=== PATIENT | male | born 2000 | race Caucasian/White ===

== ENCOUNTER 2019-10-07 21:32 | Emergency (ER) | payer MEDICAID ==
[2019-10-07 22:35] VITALS: BP 120/55
[2019-10-07] MEDS ORDERED: IBUPROFEN 800 MG TABLET PO ONE (22:39)
--- NOTE | 2019-10-07 22:46 | ER Document Report ---
ED Burn/Smoke/Toxic Fumes - General Chief Complaint: Sunburn Stated Complaint: SUNBURN/BLISTERING Time Seen by Provider: 10/07/19 22:39 Primary Care Provider: MIHIR SHARMA MD [Primary Care Provider] - Follow up as needed Mode of Arrival: Ambulatory Information source: Patient Notes: 18-year-old male presented to ED for complaint of sunburn to his arms and shoulders. He states he went fishing and did not put on any sunscreen. He states he had a sleeveless shirt on. He states he was well angry when he wants patient because it took so long to get everything ready and then he did not put on sunscreen. 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 He states he is having pain in both shoulders since he came home. TRAVEL OUTSIDE OF THE [place] IN LAST 30 DAYS: No - HPI Patient complains to provider of: Other - Sunburn second degree Onset: Other - States he was out in the sun most of the day patient Where: Outdoors Quality of pain: Burning Severity: Moderate Pain Level: 2 Context: Other - Sunburn Associated Symptoms: None Other injuries: None - Related Data Allergies/Adverse Reactions: No Known Allergies Allergy (Verified 03/29/17 19:00) Past Medical History - General Information source: Patient - Social History Smoking Status: Current Some Day Smoker Cigarette use (# per day): Yes Smoking Education Provided: Yes - 4 minutes Frequency of alcohol use: None Drug Abuse: None Lives with: Family Family History: Reviewed & Not Pertinent Patient has homicidal ideation: No - Past Medical History Cardiac Medical History: Reports: None Pulmonary Medical History: Reports: None EENT Medical History: Reports: None Neurological Medical History: Reports: None Endocrine Medical History: Reports: None Renal/ Medical History: Reports: None Malignancy Medical History: Reports None GI Medical History: Reports: None Musculoskeletal Medical History: Reports None Skin Medical History: Reports None Psychiatric Medical History: Reports: None Traumatic Medical History: Reports: None Infectious Medical History: Reports: None Past Surgical History: Reports: Other - Mole removed from head - Immunizations Immunizations up to date: Yes Hx Diphtheria, Pertussis, Tetanus Vaccination: Yes Review of Systems - Review of Systems Constitutional: No symptoms reported EENT: No symptoms reported Cardiovascular: No symptoms reported Respiratory: No symptoms reported Gastrointestinal: No symptoms reported Genitourinary: No symptoms reported Male Genitourinary: No symptoms reported Musculoskeletal: No symptoms reported Skin: Other - Sunburn both arms and shoulders, second-degree shoulders first- degree arms Hematologic/Lymphatic: No symptoms reported Neurological/Psychological: No symptoms reported -: Yes All other systems reviewed and negative Physical Exam - Vital signs Vitals: Temp 98.7 F 10/07/19 21:32 Interpretation: Normal - General General appearance: Appears well, Alert - HEENT Head: Normocephalic, Atraumatic Eyes: Normal Pupils: PERRL - Respiratory Respiratory status: No respiratory distress Chest status: Nontender Breath sounds: Normal Chest palpation: Normal - Cardiovascular Rhythm: Regular Heart sounds: Normal auscultation Murmur: No - Abdominal Inspection: Normal Distension: No distension Bowel sounds: Normal Tenderness: Nontender Organomegaly: No organomegaly - Back Back: Normal, Nontender - Extremities General upper extremity: Normal ROM, Normal temperature General lower extremity: Normal inspection, Nontender, Normal color, Normal ROM, Normal temperature, Normal weight bearing. No: Ynes's sign Shoulder: Tender, Other - Second-degree sunburn with blisters to both shoulders Arm: Tender - First-degree sunburn to both arms Forearm: Tender - First-degree sunburn to both arms - Neurological Neuro grossly intact: Yes Cognition: Normal Orientation: AAOx4 Rukhsana Coma Scale Eye Opening: Spontaneous Solomon Coma Scale Verbal: Oriented Rukhsana Coma Scale Motor: Obeys Commands Solomon Coma Scale Total: 15 Speech: Normal Motor strength normal: LUE, RUE, LLE, RLE Sensory: Normal - Psychological Associated symptoms: Normal affect, Normal mood - Skin Skin Temperature: Warm Skin Moisture: Dry Skin Color: Normal Course - Re-evaluation Re-evalutation: 10/08/19 00:08 Patient was treated with ibuprofen in the emergency room and bacitracin to both arms. He was given instructions to use aloe after sun to his shoulders and arms or bacitracin. He was instructed to use ibuprofen for his discomfort. Patient verbalized understanding and agreement with treatment plan patient was discharged home to follow-up with his primary care doctor. - Vital Signs Vital signs: Temp Pulse Resp BP Pulse Ox 98.1 F 76 15 120/55 L 98 10/07/19 22:34 10/07/19 22:34 10/07/19 22:34 10/07/19 22:34 10/07/19 22:34 Discharge - Discharge Clinical Impression: Second degree sunburn Condition: Stable Disposition: HOME, SELF-CARE Additional Instructions: Sunburn Sunburn is caused by prolonged exposure to ultraviolet light. This can be natural sunlight or a tanning bed. Your symptoms may include redness or blistering of the skin, fatigue, weakness, and chills that last two or three days. Treatment includes antiinflammatory pain medication, rest, cooling baths, and moisturizing skin cream. Occasionally, cortisone-type medicine is required for severe sunburns. Antihistamines may be helpful if itching is severe as you heal. You should avoid any exposure to ultraviolet light for the next week or two so that further skin damage can be avoided. In the future, you should use sunscreens. Frequent or prolonged ultraviolet light exposure can cause premature skin aging, skin cancers, and wrinkles. Call the doctor if you are not improving in two or three days. Report any drainage, increasing swelling, fever, chills, or other signs of infection. Antibiotic Ointment Protection Your wounds are such that dressing them is not practical or optional. After cleansing, you should apply a thin coating of antibiotic ointment (Bacitracin, not Neosporin) to the wounds at least three times daily. This lessens infection risk, and may decrease the amount of scarring. Use a q-tip or dull butter knife, not your finger, to apply this ointment. Any debris or ooze which builds up in the ointment should be gently rubbed off with a sterile gauze pad. Harder crusting may need to be gently scrubbed off with a clean wash cloth with soap and warm water, perhaps applying a warm, wet wash cloth to the wound for ten minutes first. Development of redness, severe itching, or blistering may mean allergy to the ointment. See the doctor. [id number] green aloe after sun this will also help with the burning and discomfort and follow the directions on the bottle. Ibuprofen Ibuprofen is an excellent, safe drug for pain control. In addition, it has potent antiinflammatory effects which are beneficial, especially in the treatment of injuries, arthritis, or tendonitis. It's best to take ibuprofen with food. Persons with ulcer disease or allergy to aspirin should notify their physician of this before taking ibuprofen. Take the medication exactly as prescribed. Don't take additional doses unless instructed to do so by your doctor. If you develop wheezing, shortness of breath, hives, faintness, stomach pain, vomiting, or dark black stools, return for re-evaluation at once. FOLLOW-UP CARE: If you have been referred to a physician for follow-up care, call the physicians office for an appointment as you were instructed or within the next two days. If you experience worsening or a significant change in your symptoms, notify the physician immediately or return to the Emergency Department at any time for re-evaluation. Forms: Smoking Cessation Education Referrals: MIHIR SHARMA MD [Primary Care Provider] - Follow up as needed
== END 2019-10-07 22:57 | disposition home or self-care (01) ==
LOC: ER 21:32
DX: L55.1 Sunburn of second degree (principal); M25.511 Pain in right shoulder; M25.512 Pain in left shoulder; F17.210 Nicotine dependence, cigarettes, uncomplicated
CPT/HCPCS: 99282; J3490